=== PATIENT | male | born 1965 | race Caucasian/White ===

== ENCOUNTER → 2018-08-09 | Outpatient (REF) | payer OTHER ==
[2018-08-09 16:43] LABS: INR 1.04; PROTHROMBIN TIME 13.7 SECONDS (12.1-14.4)
[2018-08-09 16:44] LABS: PARTIAL THROMBOPLASTIN TIME 28.1 SECONDS (25.4-37.6)
== END ==
LOC: M LABDRAW1 15:45
PROVIDERS: ATTEND Physician Assistant
DX: Z01.812 Encounter for preprocedural laboratory examination (principal)

== ENCOUNTER → 2019-10-09 | Outpatient (CLI) | payer OTHER | LOC: M LABSMTC 10:20 | PROVIDERS: ATTEND Physical Medicine & Rehabilitation | DX: Z03.818 Encounter for observation for suspected exposure to other biological agents ruled out (principal); Z11.59 Encounter for screening for other viral diseases ==

== ENCOUNTER → 2020-07-20 | Outpatient (CLI) | payer OTHER ==
--- NOTE | 2020-07-20 10:11 | REP ---
INDICATION: DISC SYMPTOMS. COMPARISON: None. TECHNIQUE: Sagittal and axial T1 and T2-weighted scans are acquired in the usual fashion with and without fat saturation. Sequences include spin echo, turbo spin-echo, and STIR imaging sequences. FINDINGS: There is straightening and reversal of the normal cervical lordosis. Cervical vertebral body heights are preserved. No bony destructive lesion is seen. Craniocervical junction is unremarkable. The cervical cord is normal in course, caliber, and signal intensity on T2 weighted scans. Axial and sagittal images taken at C2-3 demonstrate facet osteoarthritis left greater than right. No disc abnormality is seen. At C3-C4, there is a left foraminal disc protrusion with some associated spurring. This produces significant left-sided neural foraminal narrowing at C3-4. Some facet hypertrophy is noted on the left at C3-4. There is mild diffuse bulging of the remainder of the C3-4 disc. There is a degenerative grade 1 C3-4 spondylolisthesis with C3 3 mm anterior with respect to C4. No cord compression is seen. At C4-C5, there is right-sided uncovertebral spurring producing foraminal narrowing. There is mild diffuse disc bulging. At C5-C6, there is diffuse disc bulging and posterior osteophytic ridging. Mild bilateral uncovertebral spurring is seen but neural foramina appear adequate. There is some flattening of the ventral margin of the cord. At C6-C7, there is central broad-based disc bulging effacing the ventral subarachnoid space. No spinal stenosis or cord compression is seen. The C7-T1 level is unremarkable. IMPRESSION: Degenerative spondylosis changes most pronounced at C3-4 where there is degenerative spondylolisthesis and a left-sided foraminal disc protrusion producing left-sided neural foraminal narrowing. There is right-sided neural foraminal narrowing at C4-5. Diffuse disc bulging at C5-6 and C6-7. <Electronically signed by Ruben Francisco > 07/20/20 1338
== END ==
LOC: M RAD 08:24
PROVIDERS: ATTEND Chiropractor
DX: M47.812 Spondylosis without myelopathy or radiculopathy, cervical region (principal); M51.36 Other intervertebral disc degeneration, lumbar region; M99.03 Segmental and somatic dysfunction of lumbar region; M54.13 Radiculopathy, cervicothoracic region; M99.01 Segmental and somatic dysfunction of cervical region